=== PATIENT | male | born 1945 | race African-American/Black ===

== ENCOUNTER 2018-04-06 20:34 | Inpatient (IN) ==
[2018-04-07 00:59] LABS: Basophils % 0.6 % (0.0-0.8); Eosinophils # 0.1 10*3/uL (0.0-0.87); Hemoglobin 7.7 GM/DL (14.0-18.0); Immature Granulocytes % 0.5 %; Immature Granulocytes Absolute 0.03 #; Lymphocytes % 15.2 % (21.2-54.2); Mean Corpuscular HGB Conc 30.8 GM/DL (32-36); Mean Corpuscular Hemoglobin 25 PG (27-34); Mean Corpuscular Volume 79.6 FL (87-102); Monocytes # 0.6 10*3/uL (0.11-0.8); Monocytes % 8.9 % (1.7-12.7); Neutrophils # 4.7 10*3/uL (1.4-7.4); Neutrophils % 73.8 % (38.7-73.9); Platelet Count 215 T/CUMM (130-400); Red Blood Count 3.14 MC/CUMM (3.8-5.5); Red Cell Distribution Width 16.5 % (9.3-17.3); White Blood Count 6.3 T/CUMM (4-12)
[2018-04-07 01:10] LABS: Fibrinogen Quant Value 165 MG% (200-400); INR 1.1
[2018-04-07 01:11] LABS: Partial Thromboplastin Time 41.5 SECS (0-40)
[2018-04-07 01:14] LABS: Calcium 8.3 MG/DL (8.5-10.1); Osmolality,Calculated 294.8 MOS/KG (273-304); Potassium 3.9 MMOL/L (3.5-5.1)
[2018-04-07 01:23] LABS: Troponin I 0.207 NG/ML (0.00-0.045)
[2018-04-07] MEDS ORDERED: GLUCAGON 1 MG VIAL IM PRN (03:19)
[2018-04-07] MEDS ORDERED: DEXTROSE 50% 25 GM/50 ML VIAL IV PRN (03:19)
[2018-04-07] MEDS ORDERED: MAGNESIUM SULF RIDER 1 GM in PREMIX 1 EACH IV ONE (04:00)
[2018-04-07] MEDS: HEPARIN 5,000 UNIT/1 ML VIAL SUBCUT SCH ×2 (05:03→16:29)
[2018-04-07 06:17] LABS: Risk Ratio 2.64; VLDL CHOLESTEROL 22.8 MG/DL
[2018-04-07 06:18] LABS: Troponin I 0.199 NG/ML (0.00-0.045)
[2018-04-07 06:22] LABS: % Iron Saturation 6.7 % (18-50); Ferritin 32.1 ng/ml (26-388)
[2018-04-07 07:33] LABS: Troponin I 0.204 NG/ML (0.00-0.045)
[2018-04-07] MEDS: sitaGLIPtin 25 MG TABLET PO SCH (08:00)
[2018-04-07] MEDS: glipiZIDE 5 MG TABLET PO SCH ×2 (08:01→16:28)
[2018-04-07] MEDS: IRON (CARBONYL) 45 MG TABLET PO SCH (08:01)
[2018-04-07] MEDS: ESCITALOPRAM 10 MG TABLET PO SCH (08:01)
[2018-04-07] MEDS: ASPIRIN EC 81 MG TABLET PO SCH (08:01)
[2018-04-07] MEDS ORDERED: CARVEDILOL 3.125 MG TABLET PO SCH ×2 (09:00→21:00)
[2018-04-07] MEDS ORDERED: amLODIPine 10 MG TABLET PO SCH (09:00)
[2018-04-07] MEDS ORDERED: TRIAMTERENE/HCTZ 75-50 MG TABLET PO SCH (09:00)
[2018-04-07] MEDS ORDERED: hydrALAZINE 20 MG/1 ML VIAL IV PRN (13:19)
[2018-04-07] MEDS: FUROSEMIDE 40 MG TABLET PO SCH (17:27)
[2018-04-07] MEDS ORDERED: LOPERAMIDE 2 MG CAPSULE PO PRN (17:39)
[2018-04-07] MEDS: hydrALAZINE 25 MG TABLET PO SCH (20:52)
[2018-04-07] MEDS: MAGNESIUM CHLORIDE 64 MG TABLET PO SCH (20:52)
[2018-04-07] MEDS: POTASSIUM CHLORIDE 20 MEQ TABLET PO SCH (20:52)
[2018-04-08] MEDS: HEPARIN 5,000 UNIT/1 ML VIAL SUBCUT SCH ×2 (04:59→18:25)
[2018-04-08 06:47] LABS: Protein/Creatinine Ratio,Urine 1.7 RATIO
[2018-04-08 08:49] LABS: Calcium 8.4 MG/DL (8.5-10.1); Osmolality,Calculated 289.3 MOS/KG (273-304); Potassium 4.8 MMOL/L (3.5-5.1)
[2018-04-08] MEDS: glipiZIDE 5 MG TABLET PO SCH ×2 (10:13→17:32)
[2018-04-08] MEDS: PANTOPRAZOLE 40 MG TABLET PO SCH ×4 (10:13→17:32)
[2018-04-08] MEDS: CARVEDILOL 6.25 MG TABLET PO SCH ×2 (10:14→20:44)
[2018-04-08] MEDS: ASPIRIN EC 81 MG TABLET PO SCH (10:14)
[2018-04-08] MEDS: ISOSORBIDE MONONITRATE 30 MG TABLET PO SCH (10:14)
[2018-04-08] MEDS: POTASSIUM CHLORIDE 20 MEQ TABLET PO SCH ×2 (10:14→20:43)
[2018-04-08] MEDS: MAGNESIUM CHLORIDE 64 MG TABLET PO SCH ×3 (10:14→20:43)
[2018-04-08] MEDS: FUROSEMIDE 40 MG TABLET PO SCH ×2 (10:14→17:32)
[2018-04-08] MEDS: IRON (CARBONYL) 45 MG TABLET PO SCH ×2 (10:14→11:59)
[2018-04-08] MEDS: sitaGLIPtin 25 MG TABLET PO SCH (10:14)
[2018-04-08] MEDS: hydrALAZINE 25 MG TABLET PO SCH ×2 (10:14→20:44)
[2018-04-08] MEDS: ESCITALOPRAM 10 MG TABLET PO SCH (10:14)
[2018-04-08] MEDS: cefTRIAXone 2,000 MG in SYRINGE 1 EACH IV SCH (20:44)
[2018-04-09] MEDS: HEPARIN 5,000 UNIT/1 ML VIAL SUBCUT SCH ×2 (04:37→16:53)
[2018-04-09 05:57] LABS: Basophils % 0.4 % (0.0-0.8); Eosinophils # 0.1 10*3/uL (0.0-0.87); Eosinophils % 2.3 % (0.00-10.9); Hematocrit 25.1 VOL% (42.0-52.0); Hemoglobin 7.9 GM/DL (14.0-18.0); Immature Granulocytes % 0.4 %; Immature Granulocytes Absolute 0.02 #; Lymphocytes # 0.8 10*3/uL (1.4-4.0); Mean Corpuscular HGB Conc 31.5 GM/DL (32-36); Mean Corpuscular Hemoglobin 25 PG (27-34); Mean Corpuscular Volume 77.7 FL (87-102); Monocytes # 0.5 10*3/uL (0.11-0.8); Monocytes % 10.4 % (1.7-12.7); Neutrophils # 3.7 10*3/uL (1.4-7.4); Neutrophils % 70.5 % (38.7-73.9); Platelet Count 183 T/CUMM (130-400); Red Blood Count 3.23 MC/CUMM (3.8-5.5); Red Cell Distribution Width 16.4 % (9.3-17.3); White Blood Count 5.2 T/CUMM (4-12)
[2018-04-09 06:22] LABS: Hypochromasia 1+; Ovalocytes Slight; Platelet Estimate Adequate
[2018-04-09 08:04] LABS: Calcium 8.3 MG/DL (8.5-10.1); Osmolality,Calculated 290.4 MOS/KG (273-304); Potassium 4.8 MMOL/L (3.5-5.1)
[2018-04-09 08:14] LABS: Total Protein (Chem) 6.1 G/DL (6.4-8.3)
[2018-04-09] MEDS: PANTOPRAZOLE 40 MG TABLET PO SCH ×3 (09:26→16:53)
[2018-04-09] MEDS: hydrALAZINE 25 MG TABLET PO SCH ×2 (09:26→21:30)
[2018-04-09] MEDS: IRON (CARBONYL) 45 MG TABLET PO SCH (09:26)
[2018-04-09] MEDS: glipiZIDE 5 MG TABLET PO SCH ×2 (09:27→16:53)
[2018-04-09] MEDS: sitaGLIPtin 25 MG TABLET PO SCH (09:27)
[2018-04-09] MEDS: ESCITALOPRAM 10 MG TABLET PO SCH (09:27)
[2018-04-09] MEDS: MAGNESIUM CHLORIDE 64 MG TABLET PO SCH ×3 (09:28→21:30)
[2018-04-09] MEDS: ASPIRIN EC 81 MG TABLET PO SCH (09:28)
[2018-04-09] MEDS: ISOSORBIDE MONONITRATE 30 MG TABLET PO SCH (09:28)
[2018-04-09] MEDS: POTASSIUM CHLORIDE 20 MEQ TABLET PO SCH ×2 (09:28→21:30)
[2018-04-09] MEDS: CARVEDILOL 6.25 MG TABLET PO SCH ×2 (09:29→21:30)
[2018-04-09] MEDS: FUROSEMIDE 40 MG TABLET PO SCH (09:32)
[2018-04-09 10:28] LABS: Albumin (SPE) 3.2 G/DL (3.2-5.3); Albumin (SPE) Rel % 52.7 %; Alpha 1 (SPE) 0.3 G/DL (0.1-0.4); Alpha 1 (SPE) Rel % 4.3 %; Alpha 2 (SPE) 0.8 G/DL (0.4-1.0); Alpha 2 (SPE) Rel % 13.5 %; Beta (SPE) 1.1 G/DL (0.5-1.1); Beta (SPE) Rel % 18.6 %; Gamma (SPE) 0.7 G/DL (0.7-1.7); Gamma (SPE) Rel % 10.9 %
[2018-04-09] MEDS ORDERED: MAGNESIUM SULF RIDER 2 GM in PREMIX 1 EACH IV ONE (10:45)
[2018-04-09 12:34] LABS: Folate 16.8 NG/ML (5.4-24.0)
[2018-04-09] MEDS: FUROSEMIDE 80 MG TABLET PO SCH ×2 (13:48→17:01)
[2018-04-09] MEDS: cefTRIAXone 2,000 MG in SYRINGE 1 EACH IV SCH (21:29)
[2018-04-10 05:35] LABS: Basophils % 0.4 % (0.0-0.8); Eosinophils # 0.1 10*3/uL (0.0-0.87); Hematocrit 25.5 VOL% (42.0-52.0); Hemoglobin 7.8 GM/DL (14.0-18.0); Immature Granulocytes % 0.4 %; Immature Granulocytes Absolute 0.02 #; Lymphocytes # 0.9 10*3/uL (1.4-4.0); Mean Corpuscular HGB Conc 30.6 GM/DL (32-36); Mean Corpuscular Hemoglobin 24 PG (27-34); Mean Corpuscular Volume 78.9 FL (87-102); Monocytes # 0.6 10*3/uL (0.11-0.8); Monocytes % 10.8 % (1.7-12.7); Neutrophils # 3.6 10*3/uL (1.4-7.4); Neutrophils % 69.4 % (38.7-73.9); Platelet Count 159 T/CUMM (130-400); Red Blood Count 3.23 MC/CUMM (3.8-5.5); Red Cell Distribution Width 16.3 % (9.3-17.3); White Blood Count 5.1 T/CUMM (4-12)
[2018-04-10 05:49] LABS: Calcium 8.2 MG/DL (8.5-10.1); Osmolality,Calculated 288.7 MOS/KG (273-304); Potassium 4.9 MMOL/L (3.5-5.1)
[2018-04-10 05:59] LABS: Hypochromasia 1+; Microcytosis 1+; Ovalocytes Few
[2018-04-10 06:00] LABS: Platelet Estimate Adequate
[2018-04-10] MEDS: HEPARIN 5,000 UNIT/1 ML VIAL SUBCUT SCH ×2 (06:24→16:07)
[2018-04-10] MEDS ORDERED: ETOMIDATE 20 MG/10 ML VIAL IV ONE (09:00)
[2018-04-10] MEDS ORDERED: PROPOFOL 200 MG/20 ML VIAL IV ONE (09:00)
[2018-04-10] MEDS ORDERED: LIDOCAINE 100 MG/5 ML SYRINGE ONE (09:00)
[2018-04-10] MEDS: glipiZIDE 5 MG TABLET PO SCH ×2 (09:27→16:06)
[2018-04-10] MEDS: PANTOPRAZOLE 40 MG TABLET PO SCH ×3 (09:43→16:06)
[2018-04-10] MEDS: IRON (CARBONYL) 45 MG TABLET PO SCH (09:43)
[2018-04-10] MEDS: MAGNESIUM CHLORIDE 64 MG TABLET PO SCH ×3 (09:43→21:59)
[2018-04-10] MEDS: NICOTINE 21 MG/24 HR PATCH TRANSDERM SCH (09:43)
[2018-04-10] MEDS: hydrALAZINE 25 MG TABLET PO SCH ×2 (09:44→21:59)
[2018-04-10] MEDS: CARVEDILOL 6.25 MG TABLET PO SCH ×2 (09:44→21:59)
[2018-04-10] MEDS: POTASSIUM CHLORIDE 20 MEQ TABLET PO SCH (09:44)
[2018-04-10] MEDS: ISOSORBIDE MONONITRATE 30 MG TABLET PO SCH (09:44)
[2018-04-10] MEDS: ESCITALOPRAM 10 MG TABLET PO SCH (09:44)
[2018-04-10] MEDS: ASPIRIN EC 81 MG TABLET PO SCH (09:44)
[2018-04-10] MEDS: FUROSEMIDE 80 MG TABLET PO SCH ×2 (12:36→16:06)
[2018-04-10] MEDS: sitaGLIPtin 25 MG TABLET PO SCH (12:37)
[2018-04-10] MEDS: cefTAZidime 500 MG in SYRINGE 1 EACH IV SCH ×2 (12:37→18:16)
[2018-04-10] MEDS: LEVOFLOXACIN INJ 250 MG in PREMIX 1 EACH IV SCH (12:41)
[2018-04-10] MEDS: SODIUM BICARBONATE 650 MG TABLET PO SCH ×2 (13:29→21:59)
[2018-04-10] MEDS ORDERED: CYANOCOBALAMIN 1000 MCG/1 ML VIAL IM ONE (13:57)
[2018-04-11] MEDS: cefTAZidime 500 MG in SYRINGE 1 EACH IV SCH ×3 (03:00→17:53)
[2018-04-11] MEDS: HEPARIN 5,000 UNIT/1 ML VIAL SUBCUT SCH ×2 (04:50→16:28)
[2018-04-11 06:01] LABS: Basophils % 0.5 % (0.0-0.8); Eosinophils # 0.1 10*3/uL (0.0-0.87); Eosinophils % 2.1 % (0.00-10.9); Hematocrit 24.7 VOL% (42.0-52.0); Hemoglobin 7.9 GM/DL (14.0-18.0); Immature Granulocytes % 0.2 %; Immature Granulocytes Absolute 0.01 #; Lymphocytes # 0.7 10*3/uL (1.4-4.0); Lymphocytes % 15.4 % (21.2-54.2); Mean Corpuscular Hemoglobin 25 PG (27-34); Mean Corpuscular Volume 77.2 FL (87-102); Monocytes # 0.6 10*3/uL (0.11-0.8); Monocytes % 13.3 % (1.7-12.7); Neutrophils # 2.9 10*3/uL (1.4-7.4); Neutrophils % 68.5 % (38.7-73.9); Platelet Count 220 T/CUMM (130-400); Red Cell Distribution Width 16.3 % (9.3-17.3); White Blood Count 4.2 T/CUMM (4-12)
[2018-04-11 06:24] LABS: Hypochromasia 1+
[2018-04-11 06:25] LABS: Microcytosis Slight; Ovalocytes Slight; Platelet Estimate Adequate
[2018-04-11 06:28] LABS: Calcium 8.1 MG/DL (8.5-10.1); Osmolality,Calculated 296.4 MOS/KG (273-304); Potassium 4.4 MMOL/L (3.5-5.1)
[2018-04-11] MEDS: NICOTINE 21 MG/24 HR PATCH TRANSDERM SCH (08:05)
[2018-04-11] MEDS: SODIUM BICARBONATE 650 MG TABLET PO SCH ×2 (08:07→21:07)
[2018-04-11] MEDS: IRON (CARBONYL) 45 MG TABLET PO SCH ×3 (08:07→21:07)
[2018-04-11] MEDS: PANTOPRAZOLE 40 MG TABLET PO SCH ×3 (08:08→16:28)
[2018-04-11] MEDS: ISOSORBIDE MONONITRATE 30 MG TABLET PO SCH (08:08)
[2018-04-11] MEDS: ESCITALOPRAM 10 MG TABLET PO SCH (08:08)
[2018-04-11] MEDS: MAGNESIUM CHLORIDE 64 MG TABLET PO SCH ×3 (08:08→21:07)
[2018-04-11] MEDS: sitaGLIPtin 25 MG TABLET PO SCH (08:08)
[2018-04-11] MEDS: ASPIRIN EC 81 MG TABLET PO SCH (08:08)
[2018-04-11] MEDS: hydrALAZINE 25 MG TABLET PO SCH ×2 (08:09→21:07)
[2018-04-11] MEDS: glipiZIDE 5 MG TABLET PO SCH ×2 (08:09→16:28)
[2018-04-11] MEDS: CARVEDILOL 6.25 MG TABLET PO SCH ×2 (08:09→21:08)
[2018-04-11] MEDS: FUROSEMIDE 80 MG TABLET PO SCH ×2 (08:09→16:28)
[2018-04-11] MEDS: LEVOFLOXACIN INJ 250 MG in PREMIX 1 EACH IV SCH (11:21)
[2018-04-11] MEDS ORDERED: BISACODYL 5 MG TABLET PO ONE (12:00)
[2018-04-11] MEDS ORDERED: POLYETHYLENE GLYCOL POWDER 255 GM BOTTLE PO ONE (13:03)
[2018-04-11] MEDS ORDERED: MAGNESIUM CITRATE 300 ML BOTTLE PO ONE (21:00)
[2018-04-11] MEDS: CYANOCOBALAMIN 500 MCG TABLET PO SCH (21:07)
[2018-04-12] MEDS: cefTAZidime 500 MG in SYRINGE 1 EACH IV SCH ×4 (02:39→19:41)
[2018-04-12] MEDS: HEPARIN 5,000 UNIT/1 ML VIAL SUBCUT SCH ×2 (04:10→17:11)
[2018-04-12 04:37] LABS: INR 1.1
[2018-04-12 07:40] LABS: Basophils % 0.5 % (0.0-0.8); Eosinophils # 0.1 10*3/uL (0.0-0.87); Eosinophils % 1.2 % (0.00-10.9); Hematocrit 27.9 VOL% (42.0-52.0); Hemoglobin 8.6 GM/DL (14.0-18.0); Immature Granulocytes % 0.2 %; Immature Granulocytes Absolute 0.01 #; Lymphocytes # 0.7 10*3/uL (1.4-4.0); Lymphocytes % 16.5 % (21.2-54.2); Mean Corpuscular HGB Conc 30.8 GM/DL (32-36); Mean Corpuscular Hemoglobin 24 PG (27-34); Mean Corpuscular Volume 78.2 FL (87-102); Monocytes # 0.6 10*3/uL (0.11-0.8); Monocytes % 13.7 % (1.7-12.7); Neutrophils # 2.9 10*3/uL (1.4-7.4); Neutrophils % 67.9 % (38.7-73.9); Platelet Count 187 T/CUMM (130-400); Red Blood Count 3.57 MC/CUMM (3.8-5.5); Red Cell Distribution Width 16.3 % (9.3-17.3); White Blood Count 4.3 T/CUMM (4-12)
[2018-04-12 08:04] LABS: Target Cells Slight
[2018-04-12 08:05] LABS: Anisocytosis Slight; Helmet Cells Slight
[2018-04-12 08:06] LABS: Burr Cells Few; Platelet Estimate Normal
[2018-04-12 08:10] LABS: Albumin 2.3 G/DL (3.4-5.0); Bilirubin,Total 0.4 MG/DL (0.2-1.0); Calcium 8.3 MG/DL (8.5-10.1); Osmolality,Calculated 291.5 MOS/KG (273-304); Potassium 3.7 MMOL/L (3.5-5.1); Total Protein 6.1 G/DL (6.4-8.3)
[2018-04-12] MEDS ORDERED: PROPOFOL 200 MG/20 ML VIAL IV ONE (09:00)
[2018-04-12] MEDS ORDERED: LIDOCAINE 100 MG/5 ML SYRINGE ONE (09:00)
[2018-04-12] MEDS ORDERED: PHENYLEPHRINE 1 MG/10 ML SYRINGE IV ONE (09:00)
[2018-04-12] MEDS: IRON (CARBONYL) 45 MG TABLET PO SCH ×3 (09:14→21:54)
[2018-04-12] MEDS: glipiZIDE 5 MG TABLET PO SCH ×2 (09:15→17:13)
[2018-04-12] MEDS: FUROSEMIDE 80 MG TABLET PO SCH ×2 (09:15→15:15)
[2018-04-12] MEDS: PANTOPRAZOLE 40 MG TABLET PO SCH ×4 (09:15→17:33)
[2018-04-12] MEDS: MAGNESIUM CHLORIDE 64 MG TABLET PO SCH ×3 (09:16→21:55)
[2018-04-12] MEDS: SODIUM BICARBONATE 650 MG TABLET PO SCH ×2 (15:13→21:55)
[2018-04-12] MEDS: sitaGLIPtin 25 MG TABLET PO SCH (15:13)
[2018-04-12] MEDS: ESCITALOPRAM 10 MG TABLET PO SCH (15:14)
[2018-04-12] MEDS: hydrALAZINE 25 MG TABLET PO SCH ×2 (15:15→21:54)
[2018-04-12] MEDS: CARVEDILOL 6.25 MG TABLET PO SCH ×2 (15:16→21:55)
[2018-04-12] MEDS: CYANOCOBALAMIN 500 MCG TABLET PO SCH ×2 (15:16→21:54)
[2018-04-12] MEDS: ASPIRIN EC 81 MG TABLET PO SCH (15:17)
[2018-04-12] MEDS: ISOSORBIDE MONONITRATE 30 MG TABLET PO SCH (15:17)
[2018-04-12] MEDS: NICOTINE 21 MG/24 HR PATCH TRANSDERM SCH (15:18)
[2018-04-12] MEDS: LEVOFLOXACIN INJ 250 MG in PREMIX 1 EACH IV SCH (15:20)
[2018-04-13] MEDS: cefTAZidime 500 MG in SYRINGE 1 EACH IV SCH ×2 (02:15→11:29)
[2018-04-13] MEDS: HEPARIN 5,000 UNIT/1 ML VIAL SUBCUT SCH (03:00)
[2018-04-13 04:48] LABS: Basophils % 0.6 % (0.0-0.8); Eosinophils # 0.1 10*3/uL (0.0-0.87); Eosinophils % 2.5 % (0.00-10.9); Hematocrit 24.4 VOL% (42.0-52.0); Hemoglobin 7.9 GM/DL (14.0-18.0); Immature Granulocytes % 0.2 %; Immature Granulocytes Absolute 0.01 #; Lymphocytes # 0.9 10*3/uL (1.4-4.0); Lymphocytes % 18.9 % (21.2-54.2); Mean Corpuscular HGB Conc 32.4 GM/DL (32-36); Mean Corpuscular Hemoglobin 25 PG (27-34); Mean Corpuscular Volume 77.2 FL (87-102); Monocytes # 0.7 10*3/uL (0.11-0.8); Monocytes % 14.3 % (1.7-12.7); Neutrophils % 63.5 % (38.7-73.9); Platelet Count 200 T/CUMM (130-400); Red Blood Count 3.16 MC/CUMM (3.8-5.5); Red Cell Distribution Width 15.9 % (9.3-17.3); White Blood Count 4.8 T/CUMM (4-12)
[2018-04-13 05:16] LABS: Osmolality,Calculated 290.7 MOS/KG (273-304); Potassium 3.8 MMOL/L (3.5-5.1)
[2018-04-13 05:42] LABS: Ovalocytes 1+; Target Cells 2+
[2018-04-13 05:43] LABS: Hypochromasia 1+; Microcytosis 1+; Platelet Estimate Normal
[2018-04-13] MEDS: SODIUM BICARBONATE 650 MG TABLET PO SCH (10:41)
[2018-04-13] MEDS: CYANOCOBALAMIN 500 MCG TABLET PO SCH (10:41)
[2018-04-13] MEDS: MAGNESIUM CHLORIDE 64 MG TABLET PO SCH ×2 (10:42→15:04)
[2018-04-13] MEDS: CARVEDILOL 6.25 MG TABLET PO SCH (10:42)
[2018-04-13] MEDS: NICOTINE 21 MG/24 HR PATCH TRANSDERM SCH (10:42)
[2018-04-13] MEDS: FUROSEMIDE 80 MG TABLET PO SCH (10:43)
[2018-04-13] MEDS: ISOSORBIDE MONONITRATE 30 MG TABLET PO SCH (10:43)
[2018-04-13] MEDS: IRON (CARBONYL) 45 MG TABLET PO SCH ×2 (10:44→15:03)
[2018-04-13] MEDS: ESCITALOPRAM 10 MG TABLET PO SCH (10:44)
[2018-04-13] MEDS: sitaGLIPtin 25 MG TABLET PO SCH (10:44)
[2018-04-13] MEDS: hydrALAZINE 25 MG TABLET PO SCH (10:44)
[2018-04-13] MEDS: ASPIRIN EC 81 MG TABLET PO SCH (10:44)
[2018-04-13] MEDS: glipiZIDE 5 MG TABLET PO SCH (10:45)
[2018-04-13] MEDS: PANTOPRAZOLE 40 MG TABLET PO SCH ×2 (10:45→11:29)
[2018-04-13] MEDS: LEVOFLOXACIN INJ 250 MG in PREMIX 1 EACH IV SCH (11:36)
[2018-04-13 15:37] VITALS: BP 142/75
== END 2018-04-13 15:40 | disposition home or self-care (01) | DRG 291 ==
LOC: N.TELEN → SUATTDRO 22:11 → N.TELEN 22:46
PROVIDERS: ADMIT Internal Medicine Infectious Disease; ATTEND Hospitalist

== ENCOUNTER 2018-09-11 13:52 | Inpatient (IN) ==
[2018-09-11] MEDS ORDERED: INFLUENZA VIRUS VACCINE 0.5 ML SYRINGE IM ONE (17:34)
[2018-09-11] MEDS ORDERED: GLUCAGON 1 MG VIAL IM PRN (17:38)
[2018-09-11] MEDS ORDERED: ONDANSETRON 4 MG/2 ML VIAL IV PRN (17:38)
[2018-09-11] MEDS ORDERED: MAGNESIUM SULF RIDER 4 GM in PREMIX 1 EACH IV PRN (17:38)
[2018-09-11] MEDS ORDERED: MAGNESIUM SULF RIDER 2 GM in PREMIX 1 EACH IV PRN (17:38)
[2018-09-11] MEDS: FUROSEMIDE 40 MG/4 ML VIAL IV SCH (18:55)
[2018-09-11] MEDS: CARVEDILOL 6.25 MG TABLET PO SCH (20:56)
[2018-09-11] MEDS: INSULIN REGULAR 100 UNIT/ML SUBCUT SCH (20:57)
[2018-09-11] MEDS: ENOXAPARIN 30 MG/0.3 ML SYRINGE SUBCUT SCH (20:57)
[2018-09-11] MEDS ORDERED: CARVEDILOL 6.25 MG TABLET PO SCH (21:00)
[2018-09-12] MEDS: FUROSEMIDE 40 MG/4 ML VIAL IV SCH ×5 (00:07→18:01)
[2018-09-12 05:28] LABS: Basophils % 0.6 % (0.0-0.8); Eosinophils # 0.2 10*3/uL (0.0-0.87); Eosinophils % 4.6 % (0.00-10.9); Hematocrit 22.8 VOL% (42.0-52.0); Hemoglobin 6.9 GM/DL (14.0-18.0); Immature Granulocytes % 0.2 %; Immature Granulocytes Absolute 0.01 #; Lymphocytes # 1.2 10*3/uL (1.4-4.0); Lymphocytes % 25.2 % (21.2-54.2); Mean Corpuscular HGB Conc 30.3 GM/DL (32-36); Mean Corpuscular Hemoglobin 22 PG (27-34); Mean Corpuscular Volume 73.5 FL (87-102); Monocytes # 0.7 10*3/uL (0.11-0.8); Monocytes % 15.3 % (1.7-12.7); Neutrophils # 2.6 10*3/uL (1.4-7.4); Neutrophils % 54.1 % (38.7-73.9); Platelet Count 152 T/CUMM (130-400); Red Cell Distribution Width 17.2 % (9.3-17.3); White Blood Count 4.8 T/CUMM (4-12)
[2018-09-12 05:39] LABS: Calcium 8.2 MG/DL (8.5-10.1); Osmolality,Calculated 298.5 MOS/KG (273-304); Risk Ratio 4.2; Thyroid Stimulating Hormone 6.07 uIU/ml (0.358-3.74); VLDL CHOLESTEROL 22.2 MG/DL
[2018-09-12 06:07] LABS: Hypochromasia 1+; Microcytosis 1+; Platelet Estimate Normal
[2018-09-12 06:08] LABS: Target Cells Few
[2018-09-12] MEDS ORDERED: MAGNESIUM OXIDE 400 MG TABLET PO SCH (09:00)
[2018-09-12] MEDS ORDERED: ESCITALOPRAM 10 MG TABLET PO SCH (09:00)
[2018-09-12] MEDS ORDERED: SPIRONOLACTONE 25 MG TABLET PO SCH (09:00)
[2018-09-12] MEDS ORDERED: sitaGLIPtin 25 MG TABLET PO SCH ×2 (09:00)
[2018-09-12] MEDS: MAGNESIUM OXIDE 400 MG TABLET PO SCH (09:01)
[2018-09-12] MEDS: INSULIN REGULAR 100 UNIT/ML SUBCUT SCH ×4 (09:04→21:36)
[2018-09-12] MEDS: glipiZIDE 5 MG TABLET PO SCH ×2 (09:04→16:43)
[2018-09-12] MEDS: SPIRONOLACTONE 25 MG TABLET PO SCH (09:04)
[2018-09-12] MEDS: CARVEDILOL 6.25 MG TABLET PO SCH ×2 (09:04→20:53)
[2018-09-12] MEDS: ASPIRIN EC 325 MG TABLET PO SCH (09:04)
[2018-09-12] MEDS: ESCITALOPRAM 10 MG TABLET PO SCH (09:04)
[2018-09-12] MEDS ORDERED: SODIUM CHLORIDE 0.9% 1,000 ML IV PRN (09:59)
[2018-09-12 19:45] LABS: Hematocrit 28.7 VOL% (42.0-52.0)
[2018-09-12] MEDS: ENOXAPARIN 30 MG/0.3 ML SYRINGE SUBCUT SCH (20:52)
[2018-09-12] MEDS: INSULIN GLARGINE 100 UNIT/ML SUBCUT SCH (20:52)
[2018-09-13 05:14] LABS: Basophils # 0.1 10*3/uL (0.0-0.2); Basophils % 0.8 % (0.0-0.8); Eosinophils # 0.4 10*3/uL (0.0-0.87); Eosinophils % 5.5 % (0.00-10.9); Hematocrit 29.6 VOL% (42.0-52.0); Hemoglobin 9.1 GM/DL (14.0-18.0); Immature Granulocytes % 0.3 %; Immature Granulocytes Absolute 0.02 #; Lymphocytes # 1.7 10*3/uL (1.4-4.0); Lymphocytes % 26.2 % (21.2-54.2); Mean Corpuscular HGB Conc 30.7 GM/DL (32-36); Mean Corpuscular Hemoglobin 23 PG (27-34); Mean Corpuscular Volume 75.5 FL (87-102); Monocytes # 0.8 10*3/uL (0.11-0.8); Monocytes % 12.1 % (1.7-12.7); Neutrophils # 3.5 10*3/uL (1.4-7.4); Neutrophils % 55.1 % (38.7-73.9); Platelet Count 140 T/CUMM (130-400); Red Blood Count 3.92 MC/CUMM (3.8-5.5); Red Cell Distribution Width 18.1 % (9.3-17.3); White Blood Count 6.4 T/CUMM (4-12)
[2018-09-13 05:20] LABS: Calcium 8.2 MG/DL (8.5-10.1); Osmolality,Calculated 290.7 MOS/KG (273-304); Potassium 4.1 MMOL/L (3.5-5.1)
[2018-09-13] MEDS: FUROSEMIDE 40 MG/4 ML VIAL IV SCH ×5 (05:55→21:22)
[2018-09-13] MEDS: LEVOTHYROXINE 50 MCG TABLET PO SCH (05:55)
[2018-09-13] MEDS: CARVEDILOL 6.25 MG TABLET PO SCH ×2 (08:56→21:21)
[2018-09-13] MEDS: ESCITALOPRAM 10 MG TABLET PO SCH (08:56)
[2018-09-13] MEDS: ASPIRIN EC 325 MG TABLET PO SCH (08:56)
[2018-09-13] MEDS: SPIRONOLACTONE 25 MG TABLET PO SCH (08:57)
[2018-09-13] MEDS: MAGNESIUM OXIDE 400 MG TABLET PO SCH (08:57)
[2018-09-13] MEDS: glipiZIDE 5 MG TABLET PO SCH ×2 (09:06→16:20)
[2018-09-13] MEDS: INSULIN REGULAR 100 UNIT/ML SUBCUT SCH ×4 (09:06→21:10)
[2018-09-13] MEDS: ENOXAPARIN 30 MG/0.3 ML SYRINGE SUBCUT SCH (21:21)
[2018-09-13] MEDS: INSULIN GLARGINE 100 UNIT/ML SUBCUT SCH (21:28)
[2018-09-14] MEDS: FUROSEMIDE 40 MG/4 ML VIAL IV SCH ×4 (03:08→21:07)
[2018-09-14] MEDS: LEVOTHYROXINE 50 MCG TABLET PO SCH (05:36)
[2018-09-14 07:01] LABS: INR 1.3; PT Patient Result 13.8 SECS
[2018-09-14 07:12] LABS: Albumin 2.2 G/DL (3.4-5.0); Bilirubin,Total 1.2 MG/DL (0.2-1.0); Calcium 7.9 MG/DL (8.5-10.1); Osmolality,Calculated 289.8 MOS/KG (273-304); Potassium 3.6 MMOL/L (3.5-5.1); Total Protein 6.1 G/DL (6.4-8.3)
[2018-09-14 08:01] LABS: Hepatitis A Ab IgM Result Negative (Negative); Hepatitis B Core IgM Quant 0.13 Index; Hepatitis B Core IgM Result Negative (Negative); Hepatitis B Surface Ag Quant < 0.10 Index; Hepatitis B Surface Ag Result Negative (Negative); Hepatitis C Virus Ab Quant > 11.00 Index; Hepatitis C Virus Ab Result Positive (Negative)
[2018-09-14] MEDS: glipiZIDE 5 MG TABLET PO SCH ×2 (10:07→16:48)
[2018-09-14] MEDS: ASPIRIN EC 325 MG TABLET PO SCH (10:08)
[2018-09-14] MEDS: MAGNESIUM OXIDE 400 MG TABLET PO SCH (10:08)
[2018-09-14] MEDS: CARVEDILOL 6.25 MG TABLET PO SCH ×2 (10:08→21:06)
[2018-09-14] MEDS: ESCITALOPRAM 10 MG TABLET PO SCH (10:08)
[2018-09-14] MEDS: SPIRONOLACTONE 25 MG TABLET PO SCH (10:08)
[2018-09-14] MEDS: INSULIN REGULAR 100 UNIT/ML SUBCUT SCH ×4 (10:09→21:07)
[2018-09-14] MEDS: ENOXAPARIN 30 MG/0.3 ML SYRINGE SUBCUT SCH (21:07)
[2018-09-14] MEDS: INSULIN GLARGINE 100 UNIT/ML SUBCUT SCH (21:11)
[2018-09-15] MEDS: FUROSEMIDE 40 MG/4 ML VIAL IV SCH ×3 (03:10→17:43)
[2018-09-15] MEDS: LEVOTHYROXINE 50 MCG TABLET PO SCH (06:07)
[2018-09-15] MEDS: SPIRONOLACTONE 25 MG TABLET PO SCH (09:44)
[2018-09-15] MEDS: ASPIRIN EC 325 MG TABLET PO SCH (09:44)
[2018-09-15] MEDS: CARVEDILOL 6.25 MG TABLET PO SCH ×2 (09:44→20:51)
[2018-09-15] MEDS: glipiZIDE 5 MG TABLET PO SCH ×2 (09:44→17:43)
[2018-09-15] MEDS: ESCITALOPRAM 10 MG TABLET PO SCH (09:44)
[2018-09-15] MEDS: INSULIN REGULAR 100 UNIT/ML SUBCUT SCH ×4 (09:44→20:52)
[2018-09-15] MEDS: MAGNESIUM OXIDE 400 MG TABLET PO SCH (09:44)
[2018-09-15 10:54] LABS: Basophils % 0.7 % (0.0-0.8); Eosinophils # 0.5 10*3/uL (0.0-0.87); Eosinophils % 8.7 % (0.00-10.9); Hematocrit 27.8 VOL% (42.0-52.0); Hemoglobin 8.5 GM/DL (14.0-18.0); Immature Granulocytes % 0.2 %; Immature Granulocytes Absolute 0.01 #; Lymphocytes # 1.1 10*3/uL (1.4-4.0); Lymphocytes % 19.1 % (21.2-54.2); Mean Corpuscular HGB Conc 30.6 GM/DL (32-36); Mean Corpuscular Hemoglobin 23 PG (27-34); Mean Corpuscular Volume 75.7 FL (87-102); Monocytes # 0.5 10*3/uL (0.11-0.8); Monocytes % 9.4 % (1.7-12.7); Neutrophils # 3.4 10*3/uL (1.4-7.4); Neutrophils % 61.9 % (38.7-73.9); Platelet Count 142 T/CUMM (130-400); Red Blood Count 3.67 MC/CUMM (3.8-5.5); White Blood Count 5.5 T/CUMM (4-12)
[2018-09-15 11:27] LABS: Hypochromasia 1+; Ovalocytes Slight; Platelet Estimate Adequate
[2018-09-15] MEDS: ENOXAPARIN 30 MG/0.3 ML SYRINGE SUBCUT SCH (20:52)
[2018-09-15] MEDS: INSULIN GLARGINE 100 UNIT/ML SUBCUT SCH (20:52)
[2018-09-16] MEDS: FUROSEMIDE 40 MG/4 ML VIAL IV SCH (01:25)
[2018-09-16 05:32] LABS: Basophils % 0.6 % (0.0-0.8); Eosinophils # 0.4 10*3/uL (0.0-0.87); Eosinophils % 5.9 % (0.00-10.9); Hematocrit 25.8 VOL% (42.0-52.0); Hemoglobin 7.9 GM/DL (14.0-18.0); Immature Granulocytes % 0.3 %; Immature Granulocytes Absolute 0.02 #; Lymphocytes # 1.6 10*3/uL (1.4-4.0); Lymphocytes % 25.2 % (21.2-54.2); Mean Corpuscular HGB Conc 30.6 GM/DL (32-36); Mean Corpuscular Hemoglobin 23 PG (27-34); Mean Corpuscular Volume 76.3 FL (87-102); Monocytes # 0.6 10*3/uL (0.11-0.8); Neutrophils # 3.6 10*3/uL (1.4-7.4); Platelet Count 133 T/CUMM (130-400); Red Blood Count 3.38 MC/CUMM (3.8-5.5); Red Cell Distribution Width 19.9 % (9.3-17.3); White Blood Count 6.2 T/CUMM (4-12)
[2018-09-16 05:45] LABS: Albumin 2.2 G/DL (3.4-5.0); Bilirubin,Total 1.4 MG/DL (0.2-1.0); Calcium 8.4 MG/DL (8.5-10.1); Potassium 4.1 MMOL/L (3.5-5.1); Total Protein 6.1 G/DL (6.4-8.3)
[2018-09-16 05:57] LABS: Hypochromasia 1+; Platelet Estimate Adequate
[2018-09-16] MEDS: LEVOTHYROXINE 50 MCG TABLET PO SCH (07:14)
[2018-09-16] MEDS: INSULIN REGULAR 100 UNIT/ML SUBCUT SCH ×4 (08:00→21:39)
[2018-09-16] MEDS: ESCITALOPRAM 10 MG TABLET PO SCH (08:24)
[2018-09-16] MEDS: ASPIRIN EC 325 MG TABLET PO SCH (08:24)
[2018-09-16] MEDS: MAGNESIUM OXIDE 400 MG TABLET PO SCH (08:24)
[2018-09-16] MEDS: glipiZIDE 5 MG TABLET PO SCH ×2 (08:24→16:57)
[2018-09-16] MEDS: CARVEDILOL 6.25 MG TABLET PO SCH ×2 (08:25→21:39)
[2018-09-16] MEDS: SPIRONOLACTONE 25 MG TABLET PO SCH (08:25)
[2018-09-16] MEDS: metOLazone 5 MG TABLET PO SCH (11:47)
[2018-09-16] MEDS: FUROSEMIDE 100 MG/10 ML VIAL IV SCH ×2 (11:48→16:57)
[2018-09-16] MEDS ORDERED: ENOXAPARIN 40 MG/0.4 ML SYRINGE SUBCUT SCH (21:00)
[2018-09-16] MEDS: INSULIN GLARGINE 100 UNIT/ML SUBCUT SCH (21:39)
[2018-09-17 06:00] LABS: Basophils # 0.1 10*3/uL (0.0-0.2); Basophils % 0.8 % (0.0-0.8); Eosinophils # 0.4 10*3/uL (0.0-0.87); Eosinophils % 6.4 % (0.00-10.9); Hematocrit 26.3 VOL% (42.0-52.0); Immature Granulocytes % 0.3 %; Immature Granulocytes Absolute 0.02 #; Lymphocytes # 1.6 10*3/uL (1.4-4.0); Lymphocytes % 26.9 % (21.2-54.2); Mean Corpuscular HGB Conc 30.4 GM/DL (32-36); Mean Corpuscular Hemoglobin 24 PG (27-34); Mean Corpuscular Volume 77.6 FL (87-102); Monocytes # 0.7 10*3/uL (0.11-0.8); Monocytes % 10.9 % (1.7-12.7); Neutrophils # 3.3 10*3/uL (1.4-7.4); Neutrophils % 54.7 % (38.7-73.9); Platelet Count 146 T/CUMM (130-400); Red Blood Count 3.39 MC/CUMM (3.8-5.5)
[2018-09-17 06:11] LABS: Calcium 8.6 MG/DL (8.5-10.1); Osmolality,Calculated 290.7 MOS/KG (273-304); Potassium 4.1 MMOL/L (3.5-5.1)
[2018-09-17 06:21] LABS: Hypochromasia Slight; Platelet Estimate Adequate; Target Cells Few
[2018-09-17 06:23] LABS: Folate 12.8 NG/ML (5.4-24.0); Vitamin B12 806 PG/ML (211-911)
[2018-09-17] MEDS: DEXTROSE 50% 25 GM/50 ML VIAL IV PRN ×2 (06:44→11:29)
[2018-09-17] MEDS: LEVOTHYROXINE 50 MCG TABLET PO SCH (06:45)
[2018-09-17] MEDS ORDERED: diphenhydrAMINE CAP 25 MG CAPSULE PO ONE (07:00)
[2018-09-17] MEDS ORDERED: SODIUM CHLORIDE 0.9% 1,000 ML IV SCH (07:00)
[2018-09-17] MEDS ORDERED: DIAZEPAM 5 MG TABLET PO ONE (07:00)
[2018-09-17 07:11] LABS: Sedimentation Rate-Westergren 30 MM/HR (0-20)
[2018-09-17] MEDS: INSULIN REGULAR 100 UNIT/ML SUBCUT SCH ×3 (11:35→20:56)
[2018-09-17 12:54] LABS: Hemoglobin A1 (Alkaline) 97.9 % (96.5-98.5); Hemoglobin A2 (Alkaline) 2.1 % (1.5-3.5)
[2018-09-17] MEDS ORDERED: diphenhydrAMINE CAP 25 MG CAPSULE ONE (14:08)
[2018-09-17] MEDS ORDERED: DIAZEPAM 5 MG TABLET ONE (14:09)
[2018-09-17] MEDS ORDERED: HEPARIN/NACL 0.9% 2 UNITS/ML 1,000 ML IV ONE (15:20)
[2018-09-17] MEDS ORDERED: LIDOCAINE 1% 20 ML VIAL ONE (15:20)
[2018-09-17] MEDS ORDERED: MIDAZOLAM 2 MG/2 ML VIAL ONE (15:51)
[2018-09-17] MEDS ORDERED: fentaNYL 100 MCG/2 ML VIAL ONE (15:52)
[2018-09-17] MEDS: glipiZIDE 5 MG TABLET PO SCH ×2 (17:30→17:32)
[2018-09-17] MEDS: FUROSEMIDE 100 MG/10 ML VIAL IV SCH ×2 (17:30→17:32)
[2018-09-17] MEDS: CARVEDILOL 6.25 MG TABLET PO SCH ×2 (17:32→20:56)
[2018-09-17] MEDS: SPIRONOLACTONE 25 MG TABLET PO SCH (17:32)
[2018-09-17] MEDS: MAGNESIUM OXIDE 400 MG TABLET PO SCH (17:32)
[2018-09-17] MEDS: ASPIRIN EC 325 MG TABLET PO SCH (17:32)
[2018-09-17] MEDS: metOLazone 5 MG TABLET PO SCH (17:32)
[2018-09-17] MEDS: ESCITALOPRAM 10 MG TABLET PO SCH (17:32)
[2018-09-17] MEDS: INSULIN GLARGINE 100 UNIT/ML SUBCUT SCH (20:55)
[2018-09-18 05:04] LABS: Basophils % 0.6 % (0.0-0.8); Eosinophils # 0.2 10*3/uL (0.0-0.87); Eosinophils % 4.4 % (0.00-10.9); Hematocrit 25.9 VOL% (42.0-52.0); Hemoglobin 7.9 GM/DL (14.0-18.0); Immature Granulocytes % 0.4 %; Immature Granulocytes Absolute 0.02 #; Lymphocytes # 1.2 10*3/uL (1.4-4.0); Lymphocytes % 22.3 % (21.2-54.2); Mean Corpuscular HGB Conc 30.5 GM/DL (32-36); Mean Corpuscular Hemoglobin 24 PG (27-34); Mean Corpuscular Volume 77.5 FL (87-102); Monocytes # 0.6 10*3/uL (0.11-0.8); Monocytes % 10.5 % (1.7-12.7); Neutrophils # 3.4 10*3/uL (1.4-7.4); Neutrophils % 61.8 % (38.7-73.9); Red Blood Count 3.34 MC/CUMM (3.8-5.5); Red Cell Distribution Width 21.2 % (9.3-17.3); White Blood Count 5.4 T/CUMM (4-12)
[2018-09-18 05:10] LABS: Platelet Count 139 T/CUMM (130-400)
[2018-09-18 05:21] LABS: Hypochromasia 1+; Macrocytosis Slight; Platelet Estimate Adequate; Target Cells Few
[2018-09-18 05:27] LABS: Calcium 8.4 MG/DL (8.5-10.1); Osmolality,Calculated 290.7 MOS/KG (273-304)
[2018-09-18 05:28] LABS: Calcium 8.5 MG/DL (8.5-10.1); Osmolality,Calculated 290.7 MOS/KG (273-304)
[2018-09-18] MEDS: LEVOTHYROXINE 50 MCG TABLET PO SCH (05:57)
[2018-09-18] MEDS: INSULIN REGULAR 100 UNIT/ML SUBCUT SCH ×4 (08:32→21:05)
[2018-09-18] MEDS: FUROSEMIDE 100 MG/10 ML VIAL IV SCH ×2 (08:50→17:21)
[2018-09-18] MEDS: ESCITALOPRAM 10 MG TABLET PO SCH (08:52)
[2018-09-18] MEDS: MAGNESIUM OXIDE 400 MG TABLET PO SCH (08:52)
[2018-09-18] MEDS: metOLazone 5 MG TABLET PO SCH (08:52)
[2018-09-18] MEDS: SPIRONOLACTONE 25 MG TABLET PO SCH (08:52)
[2018-09-18] MEDS: glipiZIDE 5 MG TABLET PO SCH ×2 (08:52→17:21)
[2018-09-18] MEDS: ASPIRIN EC 325 MG TABLET PO SCH (08:52)
[2018-09-18] MEDS: CARVEDILOL 6.25 MG TABLET PO SCH ×2 (08:52→21:05)
[2018-09-18] MEDS: INSULIN GLARGINE 100 UNIT/ML SUBCUT SCH (21:06)
[2018-09-19] MEDS: LEVOTHYROXINE 50 MCG TABLET PO SCH (06:09)
[2018-09-19] MEDS: INSULIN REGULAR 100 UNIT/ML SUBCUT SCH ×2 (08:03→11:51)
[2018-09-19] MEDS: metOLazone 5 MG TABLET PO SCH (08:46)
[2018-09-19] MEDS: glipiZIDE 5 MG TABLET PO SCH (08:46)
[2018-09-19] MEDS: MAGNESIUM OXIDE 400 MG TABLET PO SCH (08:46)
[2018-09-19] MEDS: ESCITALOPRAM 10 MG TABLET PO SCH (08:46)
[2018-09-19] MEDS: ASPIRIN EC 325 MG TABLET PO SCH (08:46)
[2018-09-19] MEDS: FUROSEMIDE 100 MG/10 ML VIAL IV SCH (08:47)
[2018-09-19] MEDS: CARVEDILOL 6.25 MG TABLET PO SCH (08:47)
[2018-09-19] MEDS: SPIRONOLACTONE 25 MG TABLET PO SCH (08:47)
[2018-09-19 11:54] VITALS: BP 120/64
== END 2018-09-19 12:38 | disposition home or self-care (01) | DRG 286 ==
LOC: SUATTDRO 16:47 → INTOOBSV 16:47 → N.2E 16:47 → SUATTDRO 09-12 12:22
PROVIDERS: ADMIT Internal Medicine; ATTEND Hospitalist
PROC: CLCCHCL (ICD-10-PCS; 2018-09-17 14:45)